=== PATIENT | male | born 1985 | race Caucasian/White ===

== ENCOUNTER 2022-01-15 08:17 | Outpatient (CLI) | payer BC, SELFPAY ==
[2022-01-15 08:54] LABS: Erythrocyte Sedimentation Rate 5 mm/hr (0-20)
[2022-01-15 09:19] LABS: CRP < 2.90 mg/L (0.0-3.0); LDH 271 U/L (87-241)
[2022-01-16 16:08] LABS: Anti-Centromere B Ab <0.2 AI (0.0-0.9); Anti-Chromatin <0.2 AI (0.0-0.9); Anti-Jo <0.2 AI (0.0-0.9); Anti-Scleroderma-70 AB <0.2 AI (0.0-0.9); RNP Ab 0.2 AI (0.0-0.9); SJOGREN'S Anti-SS-A test < 0.2 AI (0.0-0.9); SJOGREN'S Anti-SS-B test < 0.2 AI (0.0-0.9); Smith Ab <0.2 AI (0.0-0.9)
[2022-01-16 17:04] LABS: Anti-dsDNA Ab 4 IU/mL (0-9)
[2022-01-21 00:07] LABS: Endomysial Antibody IgA Negative (Negative); Immunoglobulin A 183 mg/dL (90-386); Immunoglobulin E 17 IU/mL (6-495); Immunoglobulin G 1041 mg/dL (603-1613)
[2022-01-21 12:52] LABS: Immunoglobulin M 58 mg/dL (20-172); t-Transglutaminase IgA <2 U/mL (0-3)
== END 2022-01-15 23:59 | disposition home or self-care (01) ==
PROVIDERS: PCP Student in an Organized Health Care Education/Training Program; Visit Provider Internal Medicine Gastroenterology
DX: K20.0 Eosinophilic esophagitis (principal)
CPT/HCPCS: 82784; 82785; 83516; 83615; 85652; 86140; 86225; 86235; 86255

== ENCOUNTER 2022-03-24 09:50 | Day surgery (SDC) | payer BC, SELFPAY ==
[2022-03-24] VITALS (7 sets, daily range): BP systolic 93–130; BP diastolic 57–78; PULSE 57–75; RESP 16; TEMP 36.4–37; O2SAT 94–97; BMI 40.4
[2022-03-24] MEDS: Lactated Ringers 1,000 ML 15 ML IV (10:05)
--- NOTE | 2022-03-24 10:55 | PCM.HP.BLA ---
History and Physical Date of Admission: 03/24/22 VARUN PAZ, is a 36 M who presents to the office today for Evaluation of GERD. Established with this clinic 01.14.22 with referral from his PCP. He has had issues with reflux and periodic dysphagia since approximately 1999 with protonix used for symptom management. History of esophageal stricture seen with distant EGD, unknown date. Reports that on onset he had EGD performed with dilation for narrowing of the esophagus, he does not recall reasoning for narrowing. Currently taking omeprazole 40mg QD which is effective without breakthrough, however he does have symptoms on days that he forgets to take this. Dysphagia occurs about once a week while eating; he does spend a lot of time eating d/t extended time chewing. No recent episodes of choking without episodes requiring emergent intervention. Breakfast: nutrigrain bar/poptarts with one extra large mug of coffee. Lunch: typically leftovers and a bottle of pop (one bottle of pop a day). Dinner: Chicken/pork chops are preferred over red meats, he does not prefer spicy foods. There is a lot of flavor spicing and acidic foods about once a wek. Biochemical workup 12.18.21 noted elevated chloride 106, cholesterol 232, LDL 162, non HDL 190, TC:HDL ration 5.52, LDL:HDL 3.86, TSH 6.190, Hgb A1c 5.9 and decreased Vitamin D 15.0. Additional medical history includes difficulty hearing, appendectomy 2004. ROS Const Constitutional: No anorexia, fatigue, fever(s), weight change or sleep problems Eyes Eyes: No change in vision ENT ENT: No abnormal hearing, difficulty swallowing, mouth lesions, tongue swelling or throat swelling Resp Respiratory: No cough or shortness of breath Cardio Cardiology: No chest pain at rest, chest pain with exertion, shortness of breath or dyspnea on exertion Gastro GI: No difficulty swallowing Genitourinary Male: No difficulty urinating or burning urination Musc Musculoskeletal: No joint pain, joint swelling, muscle weakness or decreased muscle mass Skin Skin: No hair loss in leg, yellowing of the eye, itchy eyes, rash, skin ulcer or skin swelling Neuro Neurology: No abnormal hearing, abnormal movements, confusion, unsteady gait/balance or memory loss Psych Psychiatric: No anxiety, No confusion and No memory loss Endo Endocrine: No fatigue or weight change Aller/Imm Allergy/Immunologic: No itchy eyes, throat swelling or tongue swelling Go/Lymp Hematologic/Lymphatic: No easy bleeding, easy bruising or enlarged lymph nodes Exam Const General: cooperative and comfortable Nutritional Appearance: average body habitus and well nourished HENMT Head: normal to inspection Ears: hearing grossly normal bilaterally Nose: external nose normal Face and sinus: normal facial exam Mouth: oral mucosae normal Throat: posterior oropharynx normal Eyes General: appearance normal, both eyes and all related structures Neck Neck: normal visual inspection Chest Chest palpation & inspection: normal inspection of the chest and normal palpation of entire chest wall Resp Effort & Inspection: normal respiratory effort Auscultation: Bilateral: Clear to Auscultation Cardio Palpation: normal PMI Rate: regular rate Rhythm: regular rhythm GI Inspection: normal to inspection Auscultation: normal bowel sounds Percussion: normal to percussion Palpation: no hepatosplenomegaly Skin General: no rashes or lesions noted Neuro General: patient alert Extrem General: normal to inspection Psych Affect: normal affect Assessment and Plan Assessment and Plan (1) Gastroesophageal reflux disease: Plan - Dr. Langston Friend, DO: From his presentation it sounds as if he has eosinophilic esophagitis, erosive esophagitis with esophageal stricture or Schatzki's ring. Also due to diagnosis is esophageal web. We will get immunoglobulins a, E, G, M. We will also get an ESR, CRP and food allergy testing. He will undergo an upper endoscopy with biopsies of the esophagus stomach and small bowel. We will remove the natural history of chronic inflammation in the esophagus and how to other systemic issues. We will also assess for hiatal hernia or any other motility or structural issue that can be found on upper endoscopy. I have re-examined the patient. There are no clinical changes since date of exam.
--- NOTE | 2022-03-24 11:00 | IMM_PTH ---
PATIENT: VARUN PAZ LOC: EN U#:[id number] AGE/SX: 36/M ROOM: RE03/24/[address]: Dr. Kian Joe DO : 1985 BED: DIS: 03/24/2022 SPEC #: [id number] RECD: 03/24/22 15:24 STATUS: USMAN REQ #: [id number] STEPHANI: 03/24/22 11:[address]: Kian Joe DEPT: IMMUNOHISTOCHEMISTRY RECD BY: Charla Schmidt ENTERED: 03/24/22 15:24 SP TYPE: IMMUNO OTHR DR: Dr. Barrie Pagan, Tissues: A - Stomach, NOS Procedures: H Pylori (initial) PHYSICIAN & INSTITUTION [place] [id number] SPECIMEN INFORMATION: Tissue Source: A ? Gastric polyp biopsy Clinical Info: GERD Specimen Number: [id number] CPT code: 25047 METHODOLOGY: Deparaffinized sections of prefer/formalin-fixed tissue or PAP/DQ stained slides are incubated with monoclonal/polyclonal antibodies/oligonucleotide probes. Localization is made via biotin free immunoperoxidase method. Appropriate controls are performed and reacted as expected. Results on target cell population are indicated in the following table: RESULTS: ANTIBODY / CLONE RESULT Block A H Pylori (polyclonal) negative These tests were developed and their performance characteristics determined by [facility]. They may not have been cleared or approved by the U.S. Food and Drug Administration. The FDA has determined that such clearance or approval is not necessary. The above immunohistochemical/dualISH markers are ordered and reviewed by the Pathologist. INTERPRETATION: A. Gastric polyp, biopsy: Negative for Helicobacter pylori organisms. AM:johanne 03/25/2022
--- NOTE | 2022-03-24 11:00 | EGD_PTH ---
PATIENT: VARUN PAZ LOC: EN U#:[id number] AGE/SX: 36/M ROOM: RE03/24/[address]: Dr. Kian Joe DO : 1985 BED: DIS: 03/24/2022 SPEC #: [id number] RECD: 03/24/22 13:06 STATUS: USMAN REPadmini #: [id number] STEPHANI: 03/24/22 11:[address]: Kian Joe DEPT: SURGICAL PATHOLOGY RECD BY: Cierra Mcallister ENTERED: 03/24/22 13:58 SP TYPE: EGD BIOPSY OT DR: Dr. Barrie Pagan DO Tissues: A - Gastric mucous membrane B - Duodenum, NOS C - Esophagus, NOS Procedures: Surgery Specimen Level IV HEADER OPERATION: EGD ([facility] [place]), biopsy PRE-OP DIAGNOSIS: GERD TISSUE SUBMITTED: A ? Gastric polyp biopsy, B ? Duodenum biopsy, C ? Random esophagus biopsy MICROSCOPIC DIAGNOSIS A. Gastric polyp, biopsy: Fundic gland polyp. B. Duodenum, biopsy: No pathologic change. C. Esophagus, random biopsy: Consistent with eosinophilic esophagitis. AM:johanne 03/25/2022 COMMENT A. The results of immunohistochemistry for Helicobacter pylori will be reported separately ([id number]). C. The eosinophilic count per high powered field is greater than 30. MICROSCOPIC DESCRIPTION Slides are reviewed. GROSS DESCRIPTION A - Received in fixative is one container labeled with the patient's name and designated gastric polyp. The specimen consists of one irregular fragment of light gandhi soft tissue that measures 0.5 x 0.3 x 0.1 cm. The specimen is totally submitted in one cassette. B - Received in fixative is one container labeled with the patient's name and designated duodenal biopsy. The specimen consists of two irregular fragments of light gandhi soft tissue that in aggregate measure 0.6 x 0.3 x 0.1 cm. The specimen is totally submitted in one cassette. C - Received in fixative is one container labeled with the patient's name and designated random esophagus biopsy. The specimen consists of multiple irregular fragments of light gandhi soft tissue that in aggregate measure 1 x 0.2 x <0.1 cm. The specimen is totally submitted in one cassette. / AM:johanne 03/24/2022 TC:3 CPT: 10297 x3
--- NOTE | 2022-03-24 11:51 | OP.EGD_ITS ---
Patient Name: Stanley Rod Procedure Date: 03/24/2022 11:21 AM Date of : 1985 Age: 36 Procedure: Upper GI endoscopy Indications: Dysphagia, Heartburn Providers: Kian Joe DO Medicines: Monitored Anesthesia Care Patient Profile: This is a 36 year old male. Refer to note in patient chart for documentation of history and physical. Patient has symptoms of dysphagia with both liquids and solids. Complications: No immediate complications. Procedure: Pre-Anesthesia Assessment: - Prior to the procedure, a History and Physical was performed, and patient medications and allergies were reviewed. The risks and benefits of the procedure and the sedation options and risks were discussed with the patient. All questions were answered and informed consent was obtained. Patient identification and proposed procedure were verified by the physician in the pre-procedure area. Mental Status Examination: alert and oriented. Airway Examination: normal oropharyngeal airway and neck mobility. Respiratory Examination: clear to auscultation. CV Examination: normal. Prophylactic Antibiotics: The patient does not require prophylactic antibiotics. Prior Anticoagulants: The patient has taken no previous anticoagulant or antiplatelet agents. After reviewing the risks and benefits, the patient was deemed in satisfactory condition to undergo the procedure. The anesthesia plan was to use moderate sedation / analgesia (conscious sedation). Immediately prior to administration of medications, the patient was re-assessed for adequacy to receive sedatives. The heart rate, respiratory rate, oxygen saturations, blood pressure, adequacy of pulmonary ventilation, and response to care were monitored throughout the procedure. The physical status of the patient was re-assessed after the procedure. After obtaining informed consent, the endoscope was passed under direct vision. Throughout the procedure, the patient's blood pressure, pulse, and oxygen saturations were monitored continuously. The gastroscope was introduced through the mouth, and advanced to the second part of duodenum. The upper GI endoscopy was accomplished without difficulty. The patient tolerated the procedure well. Scope In: 11:30:45 AM Scope Out: 11:36:50 AM Total Procedure Duration Time 0 hours 6 minutes 5 seconds Findings: Mucosal changes including ringed esophagus, feline appearance, longitudinal furrows, small-caliber esophagus, white plaques, circumferential folds and congestion (edema) were found in the entire esophagus. Esophageal findings were graded using the Eosinophilic Esophagitis Endoscopic Reference Score (EoE-EREFS) as: Edema Grade 1 Present (decreased clarity or absence of vascular markings), Rings Grade 3 Severe (distinct rings that do not permit passage of diagnostic 8-10 mm endoscope), Exudates Grade 1 Mild (scattered white lesions involving less than 10 percent of the esophageal surface area), Furrows Grade 1 Present (vertical lines with or without visible depth) and Stricture none (no stricture found). Biopsies were obtained from the proximal and distal esophagus with cold forceps for histology of suspected eosinophilic esophagitis. Verification of patient identification for the specimen was done. Estimated blood loss was minimal. Multiple 5 mm pedunculated and sessile polyps with no bleeding and no stigmata of recent bleeding were found in the gastric body. Biopsies were taken with a cold forceps for histology. Verification of patient identification for the specimen was done. To prevent bleeding post-intervention, one hemostatic clip was successfully placed. There was no bleeding at the end of the procedure. The second portion of the duodenum was normal. Impression: - Esophageal mucosal changes consistent with eosinophilic esophagitis. Biopsied. - Multiple gastric polyps. Biopsied. Clip was placed. - Normal second portion of the duodenum. Recommendation: - Discharge patient to home. - Resume previous diet. - Continue present medications. - Await pathology results. Procedure Code(s): --- Professional --- 16871, Esophagogastroduodenoscopy, flexible, transoral; with biopsy, single or multiple CPT copyright 2017 [employer]. All rights reserved. The codes documented in this report are preliminary and upon airport utility worker review may be revised to meet current compliance requirements. Kian Joe DO 03/24/2022 11:50:30 AM This report has been signed electronically. Number of Addenda: 1 Note Initiated On: 03/24/2022 11:21 AM Addendum Number: 1 Addendum Date: 08/05/2022 6:15:36 AM MAC was used as sedation for this procedure. Kian Joe DO 08/05/2022 6:15:40 AM This report has been signed electronically.
--- NOTE | 2022-03-24 11:52 | OP.CCLET_ITS ---
08/05/2022 Barrie Pagan [address] [place] [address] Re : Upper GI endoscopy procedure for Stanley Rod Dear Dr. Pagan This procedure was performed on March. My impressions and recommendations are as follows: Impressions : - Esophageal mucosal changes consistent with eosinophilic esophagitis. Biopsied. - Multiple gastric polyps. Biopsied. Clip was placed. - Normal second portion of the duodenum. Recommendations : - Discharge patient to home. - Resume previous diet. - Continue present medications. - Await pathology results. My findings are described in the full procedure note, which is enclosed. If I can be of further assistance, please feel free to contact me at . Sincerely, Kian Joe, 03/24/2022 11:50:30 AM This report has been signed electronically.
== END 2022-03-24 12:22 | disposition home or self-care (01) ==
LOC: EN 09:51 → AC 09:56
PROVIDERS: PCP Student in an Organized Health Care Education/Training Program; Referring Provider Student in an Organized Health Care Education/Training Program; Visit Provider Internal Medicine Gastroenterology
PROC: 0DJ08ZZ Inspection of Upper Intestinal Tract, Via Natural or Artificial Opening Endoscopic (ICD-10-PCS; CPT 43235; principal; 2022-03-24 10:55)
DX: K31.7 Polyp of stomach and duodenum (principal); R13.10 Dysphagia, unspecified; K21.9 Gastro-esophageal reflux disease without esophagitis
CPT/HCPCS: 43239; 88305; 88342; J7120; J2405

== ENCOUNTER 2023-01-22 12:50 | Emergency (ER) | payer BC, SELFPAY ==
[2023-01-22 12:51] VITALS: BP 145/89; PULSE 101; RESP 18; TEMP 36.3; O2SAT 95; BMI 41.2
--- NOTE | 2023-01-22 13:10 | RAD_ITS ---
STUDY: X-RAY - RIGHT KNEE REASON FOR EXAM: Male, 37 years old. pain TECHNIQUE: 4 view(s) of the knee. COMPARISON: None. FINDINGS: Normal visualized distal femur. Normal visualized proximal tibia and fibula. Normal proximal tibiofibular articulation. There is no demonstrated fracture. Normal medial femorotibial compartment. Normal lateral femorotibial compartment. Normal patellofemoral articulation. There is no demonstrated joint effusion. Mild anterior soft tissue swelling is present. RAD/Knee 4 or More Views IMPRESSION: Mild anterior soft tissue swelling Electronically Signed: Giorgio Pineda MD at 14:30 EDT ,
--- NOTE | 2023-01-22 13:22 | EDS_ITS ---
HPI History of Present Illness HPI Narrative: Patient presents with right knee pain that began yesterday. Patient states it is gradually gotten worse. Patient states it began rather suddenly yesterday. Patient states he was kneeling on the carpet to get something off of the floor when the pain began. Patient denies any direct trauma or specific injury. Patient states his pain is worse with extension of his knee. Patient states it is better with flexion. Patient states it also got better with heating pad. Patient describes his pain as stabbing. Patient denies any paresthesias or weakness. Patient states he has had surgery on that knee for patellar tendinitis in the past. Patient states his pain is worse than the pain he had prior to that surgery. Chief Complaint: Lower Extremity Injury Onset/Context/Timing Onset: Yesterday Context: Sudden Onset Timing: Continuous Quality of Pain: Stabbing Location: Anterior right knee Worsened by: Extension Relieved by: Heat, flexion Associated Symptoms Associated Symptoms: Negative for Parasthesia, Weakness or Loss of Funtion PFSH [facility] Medical History Alcohol use Difficulty swallowing Eosinophilic esophagitis Gastric reflux Non-smoker Wears glasses Home Medications cholecalciferol (vitamin D3) 125 mcg (5,000 unit) tablet (Vitamin D3) 125 mcg PO DAILY 03/22/22 [History Last Taken Unknown] pantoprazole 40 mg tablet,delayed release 40 mg PO DAILY #30 tabs 10/07/22 [Rx Last Taken Unknown] Hydrocortisone 2.5% / Lidocaine 5% ointment (cmpd) (Hydrocortisone 2.5%/lidocaine 5% ointment (compound)) #21 ea 01/16/23 [Rx Last Taken Unknown] hydrocodone-acetaminophen 5-325mg 5mg-325mg 1 tab PO Q6H PRN PRN Pain 3 days #10 TABLETS 01/22/23 [Rx Last Taken Unknown] levothyroxine 50 mcg tablet 50 mcg PO DAILY 01/22/23 [History Last Taken Unknown] rosuvastatin 10 mg tablet 10 mg PO DAILY 01/22/23 [History Last Taken Unknown] Allergy/AdvReac Type Severity Reaction Status Date / Time Penicillins Allergy Intermediate unk Verified 01/22/23 12:50 Surgical History History of esophagogastroduodenoscopy (EGD) Hx of appendectomy Hx of arthroscopy of left knee Hx of arthroscopy of right knee Hx of eye surgery Hx of left inguinal hernia repair Social History Smoking Status: Never smoker ROS ROS ED Constitutional Constitutional ED: Denies chills or fever(s) Eyes Eyes: Denies blurry vision or change in vision ENT ENT ED: Denies rhinorrhea or sore throat Cardiovascular Cardiovascular: Denies chest pain or palpitations Respiratory/Chest Respiratory/Chest: Denies cough or dyspnea Gastrointestinal Gastrointestinal: Denies nausea or vomiting Genitourinary Genitourinary ED: Denies dysuria or hematuria Musculoskeletal Musculoskeletal: Denies back pain or neck pain Integumentary Denies abscess or rash Neurologic Neurologic: Reports headache(s); Denies weakness Allergic/Immunologic Allergic/Immunologic ED: Denies mouth swelling or urticaria EXAM Physical Exam Const Vital Signs: 01/22/23 12:51 Temperature 97.3 F L Temperature Source Temporal Pulse Rate 101 H Respiratory Rate 18 Blood Pressure 145/89 H Blood Pressure Mean 107 Pulse Ox 95 Oxygen Delivery Method Room Air Positive well nourished, well developed and obese General Appearance ED: well developed and NAD Nutritional Appearance: obese HEENT Reports moist mucous membranes Neck full ROM Extremity Extremity Narrative: There is tenderness over the anterior aspect of the right knee. There is no effusion noted. There is no bony crepitance or step-off noted. Range of motion was limited from approximately 30 degrees of flexion to complete extension due to pain. Patient was able to flex his knee from 30 degrees to past 90 degrees without any difficulty. There is no erythema or warmth. There is no pain with short arc range of motion. There is no obvious deformity noted. There is no calf tenderness. There is no laxity appreciated. Varus and valgus stress test were negative. Fantasma's test was negative. Pedal pulses are equal bilaterally. There are no motor or deficits noted. Neuro oriented x3, CN's II-XII intact bilaterally, moves all extremities and no sensory deficits noted Sensorium / Orientation: alert Motor Exam: strength 5/5 throughout Psych mental status grossly normal Skin no wounds MDM MDM MDM Narrative Medical decision making narrative: Differential diagnosis includes tendinitis, contusion, sprain, and occult fracture. X-rays of the right knee will be obtained to assess for occult fracture. Radiography Diagnostic Testing: Clinical Impression(s) from Imaging Studies Knee X-Ray 01/22/23 13:10 IMPRESSION: Mild anterior soft tissue swelling Electronically Signed: Giorgio Pineda MD at 14:30 EDT Reading Location ID and State: [address] [place] [address] , Service support , X-rays of the right knee were obtained. There are 4 views. On my independent interpretation, there is no acute fracture. There is no loose body noted. There is no effusion noted. There are some mild degenerative changes noted. Radiologist also interpreted the x-rays and agrees. Treatment and Re-Evaluation Narrative: Patient was advised of his findings. Patient was instructed to ice and elevate the right knee. Patient was given referral for orthopedics. Patient was given a prescription for a short course of [place]. Patient was instructed to follow-up with his primary care physician in 5 to 7 days. Patient understood and was agreeable with the plan. All questions were answered. Discharge Plan Triage Chief Complaint: Lower Extremity Injury ED Provider: Franco Benavides Dx/Rx/DC Orders Clinical Impression: Acute pain of right knee Instructions: ED Knee Pain of Uncertain Cause Prescriptions: New hydrocodone-acetaminophen [hydrocodone-acetaminophen] 5-325 mg tablet 1 tab PO Q6H PRN PRN (Reason: Pain) 3 Days Qty: 10 0RF No Action pantoprazole 40 mg tablet,delayed release (DR/EC) 40 mg PO DAILY Qty: 30 11RF cholecalciferol (vitamin D3) [Vitamin D3] 125 mcg (5,000 unit) Tablet 125 mcg PO DAILY levothyroxine 50 mcg tablet 50 mcg PO DAILY Label Comments: take 1 tablet by mouth EVERY MORNING BEFORE BREAKFAST rosuvastatin 10 mg tablet 10 mg PO DAILY Label Comments: take 1 tablet by mouth once daily (DME) Hydrocortisone 2.5%/lidocaine 5% ointment (compound) Ointment See Rx Instructions .Route Qty: 21 2RF Rx Instructions: As directed Primary Care Provider: Barrie Pagan Referrals: Barrie Pagan DO [Primary Care Provider] - 3-5 Days Arturo Knapp MD [Med Staff - Active Staff] - 3-5 Days Disposition Disposition: Home, Self Care
== END 2023-01-22 14:46 | disposition home or self-care (01) ==
PROVIDERS: Emergency Provider Emergency Medicine; PCP Student in an Organized Health Care Education/Training Program; Visit Provider Emergency Medicine
DX: M25.561 Pain in right knee (principal); E66.9 Obesity, unspecified; R51.9 Headache, unspecified
CPT/HCPCS: 73564; 99282

== ENCOUNTER → 2023-02-15 | Outpatient (CLI) | payer BC, SELFPAY ==
--- NOTE | 2023-02-15 07:00 | MRI_ITS ---
STUDY: MRI RIGHT KNEE REASON FOR EXAM: Male, 37 years old. History of locked knee. Evaluate for meniscal tear. TECHNIQUE: Standardized fat and water weighted pulse sequences were obtained in all 3 orthogonal planes. COMPARISON: Knee x-rays dated January 22, 2023. FINDINGS: Normal medial meniscus. Mild thinning of the articular cartilage of the medial femorotibial compartment (coronal series 7 images 13-21). Normal medial femoral condyle and tibial plateau. Normal medial collateral ligamentous complex (MCL). Normal distal semimembranosus, gracilis and semitendinosus tendons. Normal lateral meniscus. Mild thinning of the articular cartilage of the lateral femorotibial compartment (coronal series 7 images 15-21). Normal lateral femoral condyle and tibial plateau. Normal proximal tibiofibular articulation. Normal lateral collateral (fibular) ligament. Normal popliteus tendon. Normal biceps femoris tendon. Normal anterior cruciate ligament (ACL). Normal posterior cruciate ligament (PCL). Slight lateral tilt of the patella with moderate thinning of the articular cartilage of the medial and lateral patellar facets (axial series 4 images 19-25). Normal medial and lateral patellar retinaculum. Normal quadriceps tendon. Normal patellar tendon. Normal Hoffa''s fat pad. Deep infrapatellar bursitis (sagittal series 3 images 16-19). Joint effusion with small popliteal cyst (axial series 4 images 12-21). Normal soft tissues. The otherwise visualized osseous structures are unremarkable. MRI/Lower Ext Joint Only (Routine) IMPRESSION: Mild thinning of the articular cartilage of the medial and lateral tibiofemoral compartments. Slight lateral tilt of the patella with moderate thinning of the articular cartilage of the medial and lateral patellar catheter. Deep infrapatellar bursitis. Joint effusion with small popliteal cyst. No meniscal tear. Electronically Signed: Elier Celaya, at 11:44 EDT ,
== END | disposition home or self-care (01) ==
LOC: MRI 02-21 10:23
PROVIDERS: PCP Student in an Organized Health Care Education/Training Program; Referring Provider Orthopaedic Surgery Sports Medicine; Visit Provider Orthopaedic Surgery Sports Medicine
DX: M25.561 Pain in right knee (principal)
CPT/HCPCS: 73721

== ENCOUNTER 2023-04-06 06:58 | Day surgery (SDC) | payer BC, SELFPAY ==
[2023-04-06] VITALS (7 sets, daily range): BP systolic 111–121; BP diastolic 76–84; PULSE 59–90; RESP 16–18; TEMP 36.2–36.4; O2SAT 93–98; BMI 40.4
--- NOTE | 2023-04-06 | GASB_PTH ---
PATIENT: VARUN PAZ LOC: EN U#:[id number] AGE/SX: 37/M ROOM: RE04/06/[address]: Dr. Kian Joe DO : 1985 BED: DIS: 04/06/2023 SPEC #: [id number] RECD: 04/06/23 14:54 STATUS: USMAN REPadmini #: [id number] STEPHANI: 04/06/23 00:[address]: Kian Joe DEPT: SURGICAL PATHOLOGY RECD BY: Bimal Rivera ENTERED: 04/07/23 08:54 SP TYPE: Gastric Bx OTHR DR: Dr. Barrie Pagan DO Tissues: Gastric mucous membrane Procedures: Surgery Specimen Level IV HEADER OPERATION: EGD ([facility] [place]), polypectomy PRE-OP DIAGNOSIS: Eosinophilic esophagitis, gastric polyposis TISSUE SUBMITTED: Gastric polyp MICROSCOPIC DIAGNOSIS Gastric polyp, polypectomy: Fundic gland polyps x2. SJ:johanne 04/10/2023 MICROSCOPIC DESCRIPTION Slides are reviewed. GROSS DESCRIPTION Received in fixative is one container labeled with the patient's name and designated gastric polyp. The specimen consists of two polyps measuring 1.5 x 1.2 x 1.0 cm and 1.5 x 1.5 x 1.0 cm. The presumed base is inked. Both polyps are serially sectioned and submitted entirely in two cassettes with each cassette containing one polyp. / SJ:johanne 04/07/2023 TC:5 CPT: 43982
[2023-04-06] MEDS: Lactated Ringers 1,000 ML 15 ML IV (07:05)
--- NOTE | 2023-04-06 07:58 | PCM.HP.BLA ---
History and Physical Date of Admission: 04/06/23 36 M who presents to the office today for Follow up visit. Stanley established with this clinic 01.14.22 with referral from his PCP. He has had issues with reflux and periodic dysphagia since approximately 1999 with protonix used for symptom management. History of esophageal stricture seen with distant EGD, unknown date. Reports that on onset he had EGD performed with dilation for narrowing of the esophagus, he does not recall reasoning for narrowing. Currently taking omeprazole 40mg QD which is effective without breakthrough, however he does have symptoms on days that he forgets to take this. Dysphagia occurs about once a week while eating; he does spend a lot of time eating d/t extended time chewing. No recent episodes of choking without episodes requiring emergent intervention. ?PMH difficulty hearing. PSH appendectomy 2004 ?Biochemical workup 12.18.21 Elevated chloride 106, cholesterol 232, LDL 162, non HDL 190, TC:HDL ration 5.52, LDL:HDL 3.86, TSH 6.190, Hgb A1c 5.9 Decreased Vitamin D 15.0. Biochemical workup 01.15.22 ESR, CRP, GAME, KHUSHBOO comp, celiac all WNL. LDH 271H EGD 03.24.22 found EOE changes, confirmed with pathology; gastric fundic gland polyps, clip placed. H.Pylori negative. ?Plan last visit 04.08.22: EOE ? continue PPI, doing well Gastric polyposis ? secondary to PPI. Doing very well since LV without dysphagia or episodes of choking. ROS Const Constitutional: No fatigue, malaise, night sweats, weight change, sleep problems, abnormal sleep pattern or change in appetite ENT ENT: No difficulty swallowing, hoarseness or sore throat Cardio Cardiology: No chest pain at rest Gastro GI: No abdominal pain, belching, bloating, change in bowel habits, change in stool character, coffee ground emesis, constipation, cramping, diarrhea, heartburn, difficulty swallowing, feeling full early, excessive flatus, incontinent of stools, Vomiting blood/hematemesis, Blood in stool, loose stools, Black,tarry stools, nausea/dyspepsia, pain with swallowing, vomiting or other Musc Musculoskeletal: No joint pain Skin Skin: No yellowing of the eye or itchy eyes Neuro Neurology: No behavioral changes Psych Psychiatric: No abnormal sleep pattern, No anxiety, No behavioral changes, No change in appetite and No depression Endo Endocrine: No fatigue or weight change Aller/Imm Allergy/Immunologic: No itchy eyes Go/Lymp Hematologic/Lymphatic: No easy bleeding or easy bruising Exam Const General: cooperative and comfortable Nutritional Appearance: average body habitus and well nourished [facility] Head: normal to inspection Ears: hearing grossly normal bilaterally Nose: external nose normal Face and sinus: normal facial exam Mouth: oral mucosae normal Throat: posterior oropharynx normal Eyes General: appearance normal, both eyes and all related structures Neck Neck: normal visual inspection Chest Chest palpation & inspection: normal inspection of the chest and normal palpation of entire chest wall Resp Effort & Inspection: normal respiratory effort Auscultation: Bilateral: Clear to Auscultation Cardio Palpation: normal PMI Rate: regular rate Rhythm: regular rhythm GI Inspection: normal to inspection Auscultation: normal bowel sounds Percussion: normal to percussion Palpation: no hepatosplenomegaly Skin General: no rashes or lesions noted Neuro General: patient alert Extrem General: normal to inspection Psych Affect: normal affect Quality Reporting Tobacco Screening ([facility] 138) Smoking Status: Never smoker Assessment and Plan Assessment and Plan (1) Eosinophilic esophagitis: ?Status:?Chronic ?Plan: Is eosinophilic esophagitis seems very stable at this time.? He denies any esophageal dysphagia, GERD symptoms, nausea, bloating.? He is taking pantoprazole once a day.? He is not having any side effects from the pantoprazole.? We continue to use pantoprazole? as primary therapy and have him follow-up in approximately 6 months. (2) Gastric polyposis: ?Status:?Chronic ?Plan: This is secondary to PPI therapy. We will check his gastrin level in the future and perform surveillance of the polyps to make sure that there is no significant bleeding or significant growth of the polyps. ? ? ? Medications: New pantoprazole 40 mg? PO DAILY 30 tabs 11RF ? ? I have examined the patient and the H&P has been reviewed. There are no clinical changes since date of exam.
--- NOTE | 2023-04-06 08:29 | OP.EGD_ITS ---
Patient Name: Stanley Rod Procedure Date: 04/06/2023 7:39 AM Date of : 1985 Age: 37 Procedure: Upper GI endoscopy Indications: Dysphagia, Heartburn Providers: Kian Joe DO Referring MD: Kian Joe DO Medicines: Monitored Anesthesia Care Patient Profile: This is a 37 year old male. Refer to note in patient chart for documentation of history and physical. Patient has symptoms of chronic dysphagia and acute heartburn. Complications: No immediate complications. Procedure: Pre-Anesthesia Assessment: - Prior to the procedure, a History and Physical was performed, and patient medications and allergies were reviewed. The patient is competent. The risks and benefits of the procedure and the sedation options and risks were discussed with the patient. All questions were answered and informed consent was obtained. Patient identification and proposed procedure were verified by the physician in the pre-procedure area. Mental Status Examination: alert and oriented. Airway Examination: normal oropharyngeal airway and neck mobility. Respiratory Examination: clear to auscultation. CV Examination: normal. Prophylactic Antibiotics: The patient does not require prophylactic antibiotics. Prior Anticoagulants: The patient has taken no previous anticoagulant or antiplatelet agents. ASA Grade Assessment: II - A patient with mild systemic disease. After reviewing the risks and benefits, the patient was deemed in satisfactory condition to undergo the procedure. The anesthesia plan was to use monitored anesthesia care (MAC). Immediately prior to administration of medications, the patient was re-assessed for adequacy to receive sedatives. The heart rate, respiratory rate, oxygen saturations, blood pressure, adequacy of pulmonary ventilation, and response to care were monitored throughout the procedure. The physical status of the patient was re-assessed after the procedure. After obtaining informed consent, the endoscope was passed under direct vision. Throughout the procedure, the patient's blood pressure, pulse, and oxygen saturations were monitored continuously. The Endoscope was introduced through the mouth, and advanced to the second part of duodenum. The upper GI endoscopy was accomplished without difficulty. The patient tolerated the procedure well. Scope In: 8:10:14 AM Scope Out: 8:16:35 AM Total Procedure Duration Time 0 hours 6 minutes 21 seconds Findings: Mucosal changes including ringed esophagus were found in the lower third of the esophagus. A guidewire was placed and the scope was withdrawn. Dilation was performed with a Savary dilator with no resistance at 45 Fr. The dilation site was examined and showed complete resolution of luminal narrowing. Estimated blood loss was minimal. A small hiatal hernia was present. Two 20 mm pedunculated polyps with stigmata of recent bleeding were found on the lesser curvature of the stomach. The polyp was removed with a hot snare at 20 ayala. Resection and retrieval were complete using a Hernandez net. [Clip Device]. The second portion of the duodenum was normal. Impression: - Esophageal mucosal changes secondary to eosinophilic esophagitis. Dilated. - Small hiatal hernia. - Two gastric polyps. Resected and retrieved. - Normal second portion of the duodenum. Recommendation: - Discharge patient to home. - Resume previous diet. - Continue present medications. - Await pathology results. - Repeat upper endoscopy in 1 year for surveillance. Procedure Code(s): --- Professional --- 14688, Esophagogastroduodenoscopy, flexible, transoral; with removal of tumor(s), polyp(s), or other lesion(s) by snare technique [id number], Esophagogastroduodenoscopy, flexible, transoral; with insertion of guide wire followed by passage of dilator(s) through esophagus over guide wire CPT copyright 2017 [employer]. All rights reserved. The codes documented in this report are preliminary and upon certified medical records coder review may be revised to meet current compliance requirements. Kian Joe DO 04/06/2023 8:28:05 AM This report has been signed electronically. Number of Addenda: 0 Note Initiated On: 04/06/2023 7:39 AM
--- NOTE | 2023-04-06 08:29 | OP.CCLET_ITS ---
04/06/2023 Barrie Pagan [address] [place] [address] Re : Upper GI endoscopy procedure for Stanley Rod Dear Dr. Pagan This procedure was performed on April. My impressions and recommendations are as follows: Impressions : - Esophageal mucosal changes secondary to eosinophilic esophagitis. Dilated. - Small hiatal hernia. - Two gastric polyps. Resected and retrieved. - Normal second portion of the duodenum. Recommendations : - Discharge patient to home. - Resume previous diet. - Continue present medications. - Await pathology results. - Repeat upper endoscopy in 1 year for surveillance. My findings are described in the full procedure note, which is enclosed. If I can be of further assistance, please feel free to contact me at . Sincerely, Kian Joe, 04/06/2023 8:28:05 AM This report has been signed electronically.
== END 2023-04-06 09:11 | disposition home or self-care (01) ==
LOC: EN 06:58 → AC 06:58
PROVIDERS: PCP Student in an Organized Health Care Education/Training Program; Referring Provider Internal Medicine Gastroenterology; Visit Provider Internal Medicine Gastroenterology
PROC: 0DJ08ZZ Inspection of Upper Intestinal Tract, Via Natural or Artificial Opening Endoscopic (ICD-10-PCS; CPT 43235; principal; 2023-04-06 07:55)
DX: K22.2 Esophageal obstruction (principal); K44.9 Diaphragmatic hernia without obstruction or gangrene; K31.7 Polyp of stomach and duodenum; K20.0 Eosinophilic esophagitis; Z79.899 Other long term (current) drug therapy; E78.00 Pure hypercholesterolemia, unspecified; E07.9 Disorder of thyroid, unspecified; Z79.890 Hormone replacement therapy; Z87.19 Personal history of other diseases of the digestive system
CPT/HCPCS: 43248; 43251; 88305; J7120; J2405

== ENCOUNTER → 2023-04-18 | Outpatient (CLI) | payer BC, SELFPAY ==
[2023-04-19 13:08] LABS: Gastrin, Serum 217 pg/mL (0-115)
== END | disposition home or self-care (01) ==
PROVIDERS: PCP Student in an Organized Health Care Education/Training Program; Referring Provider Nurse Practitioner Adult Health; Visit Provider Nurse Practitioner Adult Health
DX: K31.7 Polyp of stomach and duodenum (principal)
CPT/HCPCS: 36415; 82941